=== PATIENT | male | born 1985 | race Caucasian/White ===

== ENCOUNTER 2016-06-23 14:37 | Emergency (ER) | payer OTHER ==
[2016-06-23] MEDS ORDERED: KETOROLAC 60 MG/2 ML VIAL IM STA (15:06)
--- NOTE | 2016-06-23 15:08 | ED ---
Back Pain HPI - General Chief Complaint: Back Pain/Injury Stated Complaint: Back Pain Time Seen by Provider: 06/23/16 14:45 Source: patient, RN notes reviewed - History of Present Illness Initial Comments: Patient is a 30-year-old male presents to the emergency room for evaluation of low back pain. Patient states around 10:00 this morning he was bending over to grab an object and felt a pop in his lower back. Patient states having pain ever since. Patient states pain is worse on the right side of his lower back. Patient denies pain radiating down his leg. Patient denies any numbness or tingling in his legs. Patient denies saddle anesthesia. Patient denies urinary or fecal incontinence. Patient states pain is worse when he sits down and better when he stands up straight. Patient denies any history of back problems. Patient denies taking anything for his pain. Patient denies applying any ice to the area. Patient states the pain would not subside so he thought he should be evaluated. Patient denies recent falls or direct trauma to his back. - Related Data Home Medications Medication Instructions Recorded Confirmed Dextroamphetamine/Amphetamine 20 mg PO TID 09/14/14 09/29/15 [Adderall] HYDROcodone/APAP 5-325MG [[place] 1 tab PO Q4HR PRN 09/29/15 09/29/15 5-325] Ibuprofen [Motrin] 800 mg PO Q6H PRN 09/29/15 09/29/15 Previous Rx's Medication Instructions Recorded HYDROcodone/APAP 5-325MG [[place] 1 tab PO Q6HR PRN #30 tab 09/29/15 5-325] Naproxen [Naprosyn] 500 mg PO Q12HR PRN #20 tab 06/23/16 Orphenadrine [Norflex] 100 mg PO Q12H PRN #12 tablet.er 06/23/16 Allergies Allergy/AdvReac Type Severity Reaction Status Date / Time No Known Allergies Allergy Verified 06/23/16 14:51 Review of Systems ROS Statement: Those systems with pertinent positive or pertinent negative responses have been documented in the HPI. ROS Other: All systems not noted in ROS Statement are negative. Past Medical History Past Medical History: No Reported History Additional Past Medical History / Comment(s): pneumothorax History of Any Multi-Drug Resistant Organisms: MRSA Date of last positivie culture/infection: 2014 Past Surgical History: No Surgical Hx Reported Past Psychological History: ADD/ADHD Smoking Status: Current every day smoker Past Alcohol Use History: Occasional Past Drug Use History: Marijuana General Exam - General Exam Comments Initial Comments: Sitting in exam room, no acute distress. General appearance: alert, in no apparent distress Head exam: Present: atraumatic, normocephalic, normal inspection Eye exam: Present: normal appearance ENT exam: Present: normal exam Neck exam: Present: normal inspection Respiratory exam: Absent: respiratory distress Back exam: Present: normal inspection, full ROM, paraspinal tenderness (right lumbosacral), vertebral tenderness (lumbosacral) Neurological exam: Present: alert, oriented X3, CN II-XII intact, normal gait Psychiatric exam: Present: normal affect, normal mood Skin exam: Present: warm, dry, intact, normal color. Absent: rash Course Vital Signs 06/23/16 06/23/16 14:49 16:31 Temperature 98.2 F 98.7 F Pulse Rate 97 89 Respiratory 18 16 Rate Blood Pressure 131/74 135/87 O2 Sat by Pulse 99 98 Oximetry Medical Decision Making - Medical Decision Making Patient is a 30-year-old male presents to the emergency room for evaluation of low back pain. X-ray shows no acute findings. Advised patient to follow-up with his primary care provider if symptoms are not improving. Will send patient home with anti-inflammatories. Patient states he understands everything was discussed with him. Return parameters discussed. - Radiology Data Radiology results: report reviewed, image reviewed Disposition Clinical Impression: Low back strain Disposition: HOME SELF-CARE Condition: Good Instructions: Acute Low Back Pain (ED) Additional Instructions: Take medications as needed for pain. Ice on and off for 10-15 minutes at a time for the next 24-48 hours. Please follow up with primary care provider if symptoms are not improving. If any new symptom arises or symptoms worsen, return to ER as soon as possible. Prescriptions: Naproxen [Naprosyn] 500 mg PO Q12HR PRN #20 tab PRN Reason: Pain Orphenadrine [Norflex] 100 mg PO Q12H PRN #12 tablet.er PRN Reason: Pain Referrals: None,Stated [Primary Care Provider] - 1-2 days Time of Disposition: 16:27
--- NOTE | 2016-06-23 16:23 | XR ---
EXAM TYPE: LUMBAR SPINE X RAY SERIES COMPARISON: NONE HISTORY: Back pain TECHNIQUE: 4 views are submitted. FINDINGS: Alignment is anatomic. The pedicles are intact. The transverse processes are intact. There is no s pondylolysis or spondylolisthesis. IMPRESSION: 1. No acute process. Follow-up with MRI as clinically warranted
[2016-06-23 16:32] VITALS: BP 135/87; PULSE 89; RESP 16; TEMP 98.7
== END 2016-06-23 16:36 | disposition home or self-care (01) ==
LOC: EC 14:37
DX: S39.012A Strain of muscle, fascia and tendon of lower back, initial encounter (principal); F90.9 Attention-deficit hyperactivity disorder, unspecified type; F17.200 Nicotine dependence, unspecified, uncomplicated; Z79.899 Other long term (current) drug therapy; X50.9XXA Other and unspecified overexertion or strenuous movements or postures, initial encounter; Y93.89 Activity, other specified
CPT/HCPCS: 72110; 99283; 96372; J1885

== ENCOUNTER 2023-04-04 07:47 | Inpatient (IN) | payer OTHER ==
[2023-04-04] MEDS: KETOROLAC 15 MG/ML 1 ML VIAL IVP STA (08:14)
[2023-04-04 08:48] LABS: HGB 15.6 gm/dL (13.0-17.5); MCH 31.7 pg (25.0-35.0); MCHC 35.6 g/dL (31.0-37.0); MCV 88.9 fL (80.0-100.0); Mean Platelet Volume 10.1; Platelet Count 156 k/uL (150-450); RBC 4.94 m/uL (4.30-5.90); WBC 15.4 k/uL (3.8-10.6)
[2023-04-04 08:50] LABS: African American GFR (CKD) >90 (>60 ml/min/1.73 sqM); Anion Gap 6 mmol/L; Blood Urea Nitrogen 11 mg/dL (9-20); Calcium 8.9 mg/dL (8.4-10.2); Carbon Dioxide 25 mmol/L (22-30); Chloride 100 mmol/L (98-107); Glucose 113 mg/dL (74-99); Non-African American GFR(CKD) >90 (>60 ml/min/1.73 sqM); Sodium 131 mmol/L (137-145)
--- NOTE | 2023-04-04 09:07 | US ---
EXAMINATION TYPE: US extremity nonvasc mass RT DATE OF EXAM: 04/04/2023 COMPARISON: NONE CLINICAL INDICATION: Male, 37 years old with history of lower leg mass/abscess; Lump and redness near right ankle area. TECHNIQUE: Grayscale imaging of the ankle. FINDINGS: Small complex fluid collection seen 1.2 x 0.3 x 0.3 cm. Near the right ankle in patient of lump. IMPRESSION: Small organizing fluid collection finding could represent hematoma/seroma and/or abscess in setting of infection and erythema.
--- NOTE | 2023-04-04 09:33 | US ---
EXAMINATION TYPE: US groin RT DATE OF EXAM: 04/04/2023 COMPARISON: NONE CLINICAL INDICATION: Male, 37 years old with history of pain; Pain right groin. TECHNIQUE: Imaging of the right groin FINDINGS: Prominent lymph node seen right groin 3.2 x 1.9 x 2.4 cm increased vascularity. IMPRESSION: Right groin lobulated lymph node. Finding could be reactive for the suspected infectious process near the ankle. Consider short-term follow up to ensure resolution in one to 2 months.
[2023-04-04] MEDS ORDERED: VANCOMYCIN IV PER PHARMACY 1 EACH MISC MISCELLANE PRN (09:40)
--- NOTE | 2023-04-04 09:55 | ED ---
General Adult HPI - General Chief complaint: Skin/Abscess/Foreign Body Stated complaint: Right leg swelling Time Seen by Provider: 04/04/23 07:54 Source: patient, RN notes reviewed Mode of arrival: ambulatory Limitations: no limitations - History of Present Illness Initial comments: 37-year-old male presents emergency department chief complaint of right leg infection, pain. Patient states that he had a prior infection to his leg and she states he was placed on antibiotics and cleared up while back. He states that he felt little off yesterday by woke up with red swelling on his lower leg, pain and pain to his right groin states there is a lump in his right groin. He states he feels weak, achy possible fever. - Related Data Home Medications Medication Instructions Recorded Confirmed Dextroamphetamine/Amphetamine 20 mg PO BID 09/14/14 04/04/23 [Adderall] Allergies Allergy/AdvReac Type Severity Reaction Status Date / Time No Known Allergies Allergy Verified 04/04/23 11:02 Review of Systems ROS Statement: Those systems with pertinent positive or pertinent negative responses have been documented in the HPI. ROS Other: All systems not noted in ROS Statement are negative. Past Medical History Past Medical History: No Reported History Additional Past Medical History / Comment(s): pneumothorax History of Any Multi-Drug Resistant Organisms: MRSA Date of last positivie culture/infection: 2014 Past Surgical History: No Surgical Hx Reported Past Psychological History: ADD/ADHD Smoking Status: Current every day smoker Past Alcohol Use History: Occasional Past Drug Use History: Marijuana General Exam Limitations: no limitations General appearance: alert, in no apparent distress Head exam: Present: atraumatic, normocephalic, normal inspection Neck exam: Present: normal inspection. Absent: tenderness, meningismus, lymphadenopathy Respiratory exam: Present: normal lung sounds bilaterally. Absent: respiratory distress, wheezes, rales, rhonchi, stridor Cardiovascular Exam: Present: regular rate, normal rhythm, normal heart sounds. Absent: systolic murmur, diastolic murmur, rubs, gallop, clicks Extremities exam: Present: other (Palpable lymphadenopathy right groin, there is an irregular bordered erythematous area in the lower leg ) Course Vital Signs 04/04/23 04/04/23 04/04/23 07:50 09:34 11:28 Temperature 99.2 F 101.2 F H 98.4 F Pulse Rate 87 86 Respiratory 16 18 Rate Blood Pressure 123/71 120/69 O2 Sat by Pulse 98 98 Oximetry Medical Decision Making - Medical Decision Making Was pt. sent in by a medical professional or institution (SHIRA Cotto, PEDIATRIC PHYSICIAN ASSISTANT, urgent care, hospital, or [place] health care facility...) When possible be specific @ -[No] Did you speak to anyone other than the patient for history (EMS, parent, family, police, friend...)? What history was obtained from this source @ -[No] Did you review nursing and triage notes (agree or disagree)? Why? @ -[I reviewed and agree with nursing and triage notes] Were old charts reviewed (outside hosp., previous admission, EMS record, old EKG, old radiological studies, urgent care reports/EKG's, [place] health care facility records)? Report findings @ -[No old charts were reviewed] Differential Diagnosis (chest pain, altered mental status, abdominal pain women, abdominal pain men, vaginal bleeding, weakness, fever, dyspnea, syncope, headache, dizziness, GI bleed, back pain, seizure, CVA, palpatations, mental health, musculoskeletal)? @ -[Cellulitis, abscess lymphadenopathy, sepsis EKG interpreted by me (3pts min.). @ -[None X-rays interpreted by me (1pt min.). @ -[None done] CT interpreted by me (1pt min.). @ -[None done] U/S interpreted by me (1pt. min.). @ -[Ultrasound mass right lower leg shows possible early abscess 1 x 0.3 x 0.3 cm Right groin ultrasound showing inguinal lymph nodes What testing was considered but not performed or refused? (CT, X-rays, U/S, labs)? Why? @ -[None] What meds were considered but not given or refused? Why? @ -[None] Did you discuss the management of the patient with other professionals (professionals i.e. SHIRA Cotto, PEDIATRIC PHYSICIAN ASSISTANT, lab, RT, psych nurse, health care social worker, project consultant, teacher, staff mine warfare officer, case worker)? Give summary @ -Dr. Arellano Was smoking cessation discussed for >3mins.? @ -[No] Was critical care preformed (if so, how long)? @ -[No] Were there social determinants of health that impacted care today? How? (Homelessness, low income, unemployed, alcoholism, drug addiction, transportation, low edu. Level, literacy, decrease access to med. care, shelter, rehab)? @ -[No] Was there de-escalation of care discussed even if they declined (Discuss DNR or withdrawal of care, Hospice)? DNR status @ -[No] What co-morbidities impacted this encounter? (DM, HTN, Smoking, COPD, CAD, Cancer, CVA, ARF, Chemo, Hep., AIDS, mental health diagnosis, sleep apnea, morbid obesity)? @ -[None] Was patient admitted / discharged? Hospital course, mention meds given and route, prescriptions, significant lab abnormalities, going to OR and other pertinent info. @ -[Admitted patient had sudden onset infection right lower leg with 6 inguinal lymphadenopathy, fever leukocytosis. Patient be admitted for IV antibiotics pending blood cultures lactic was negative. Patient does have consult to infectious disease Undiagnosed new problem with uncertain prognosis? @ -[No] Drug Therapy requiring intensive monitoring for toxicity (Heparin, Nitro, Insulin, Cardizem)? @ -[No] Were any procedures done? @ -[No] Diagnosis/symptom? @ -[cellulitis, abscess, inguinal lymphadenopathy] Acute, or Chronic, or Acute on Chronic? @ -[Acute Uncomplicated (without systemic symptoms) or Complicated (systemic symptoms)? @ -[Complicated Side effects of treatment? @ -[No] Exacerbation, Progression, or Severe Exacerbation? @ -[No] Poses a threat to life or bodily function? How? (Chest pain, [place], [place], pneumonia, PE, COPD, DKA, ARF, appy, cholecystitis, CVA, Diverticulitis, Homicidal, Suicidal, threat to staff... and all critical care pts) @ -[Yes possible sepsis] - Lab Data Result diagrams: 04/04/23 08:11 04/04/23 08:11 Lab Results 04/04/23 04/04/23 04/04/23 Range/Units 08:11 08:11 08:11 WBC 15.4 H (3.8-10.6) k/uL RBC 4.94 (4.30-5.90) m/uL Hgb 15.6 (13.0-17.5) gm/dL Hct 44.0 (39.0-53.0) % MCV 88.9 (80.0-100.0) fL MCH 31.7 (25.0-35.0) pg MCHC 35.6 (31.0-37.0) g/dL RDW 12.0 (11.5-15.5) % Plt Count 156 (150-450) k/uL MPV 10.1 Neutrophils % (Manual) 84 % Band Neuts % (Manual) 3 % Lymphocytes % (Manual) 7 % Monocytes % (Manual) 6 % Neutrophils # (Manual) 13.30 H (1.3-7.7) k/uL Lymphocytes # (Manual) 1.08 (1.0-4.8) k/uL Monocytes # (Manual) 0.92 (0-1.0) k/uL Nucleated RBCs 0 (0-0) /100 WBC Manual Slide Review Performed RBC Morphology Normal Sodium 131 L (137-145) mmol/L Potassium 4.0 (3.5-5.1) mmol/L Chloride 100 (98-107) mmol/L Carbon Dioxide 25 (22-30) mmol/L Anion Gap 6 mmol/L BUN 11 (9-20) mg/dL Creatinine 0.73 (0.66-1.25) mg/dL Est GFR (CKD-EPI)AfAm >90 (>60 ml/min/1.73 sqM) Est GFR (CKD-EPI)NonAf >90 (>60 ml/min/1.73 sqM) Glucose 113 H (74-99) mg/dL Plasma Lactic Acid Parth 1.0 (0.7-2.0) mmol/L Calcium 8.9 (8.4-10.2) mg/dL Disposition Clinical Impression: Cellulitis of right leg, Fever, Inguinal lymphadenopathy Disposition: ADMITTED IP TO THIS HOSP Condition: Fair Time of Disposition: 09:55
[2023-04-04] MEDS ORDERED: NALOXONE 0.4 MG/ML 1 ML VIAL IV PRN (09:56)
[2023-04-04] MEDS ORDERED: ONDANSETRON 4 MG/2 ML VIAL IVP PRN (09:56)
[2023-04-04 09:58] LABS: Band Neutrophils % 3 %; Lymphocytes # (M) 1.08 k/uL (1.0-4.8); Monocytes # (M) 0.92 k/uL (0-1.0); Neutrophils % (M) 84 %; Nucleated Red Blood Cells 0 /100 WBC (0-0); Total Cells Counted 100
[2023-04-04 09:59] LABS: RBC Morphology Normal
[2023-04-04] MEDS: ACETAMINOPHEN TAB 500 MG TAB PO STA (10:23)
[2023-04-04] MEDS: SODIUM CHLORIDE 0.9% 1,000 ML IV ONE (10:35)
[2023-04-04] MEDS: VANCOMYCIN 2,000 MG in SODIUM CHLORIDE 0.9% 500 ML 500 ML IVPB ONE (10:35)
[2023-04-04] MEDS: SODIUM CHLORIDE 0.9% 1,000 ML IV SCH (11:20)
[2023-04-04] MEDS: SODIUM CHLORIDE 0.9% 500 ML 500 ML IV ONE (11:25)
[2023-04-04] MEDS: ACETAMINOPHEN TAB 325 MG TAB PO PRN (18:57)
[2023-04-04] MEDS: VANCOMYCIN 1,750 MG in SODIUM CHLORIDE 0.9% 500 ML 500 ML IVPB SCH (20:34)
--- NOTE | 2023-04-04 20:40 | P.CONS ---
History of Present Illness - Reason for Consult Consult date: 04/04/23 Cellulitis Requesting physician: Mike Jack - Chief Complaint Increasing pain swelling redness to the right leg x few days - History of Present Illness Patient is a 37-year-old male with a past medical history significant for ADHD current everyday smoker previous history of right lower extremity cellulitis presenting to the hospital for evaluation of increasing pain swelling redness to the right lower extremity patient symptoms started the day before presentation the hospital has been consulted almost to the right middle leg patient denies any history of any trauma did have a area of induration swelling and redness which is painful to touch describing the pain to be sharp moderate to severe intensity without radiation and also having some pain and numbness to the right groin area patient currently not having open wound or any drainage patient on presentation to the hospital did have a fever of 101.2 degrees Fahrenheit patient was not tachycardic hypotensive or hypoxic did have a white count of 15.4 with a left shift creatinine was 0.73 extremity ultrasound small organizing fluid collection could be present hematoma seroma or an abscess patie nt was started on vancomycin infectious disease was consulted for further management of antibiotic therapy Review of Systems Positive point and negatives has been mentioned in the HPI, complete review of systems was performed and all other systems are negative Past Medical History Past Medical History: No Reported History Additional Past Medical History / Comment(s): pneumothorax History of Any Multi-Drug Resistant Organisms: MRSA Year Discovered:: 2014 Past Surgical History: No Surgical Hx Reported Past Psychological History: ADD/ADHD Smoking Status: Current every day smoker Past Alcohol Use History: Occasional Past Drug Use History: Marijuana - Past Family History Father Family Medical History: Hyperlipidemia, Hypertension, Thyroid Disorder Mother Family Medical History: No Reported History Medications and Allergies Home Medications Medication Instructions Recorded Confirmed Type Dextroamphetamine/Amphetamine 20 mg PO BID 09/14/14 04/04/23 History [Adderall] Cephalexin [Keflex] 500 mg PO Q6HR 10 Days #40 cap 04/08/23 Rx Allergies Allergy/AdvReac Type Severity Reaction Status Date / Time No Known Allergies Allergy Verified 04/04/23 11:02 Physical Exam Vitals: Vital Signs Temp Pulse Resp BP Pulse Ox 04/04/23 09:34 101.2 F H 86 18 120/69 98 04/04/23 07:50 99.2 F 87 16 123/71 98 Intake and Output 04/03/23 04/04/23 04/04/23 22:59 06:59 14:59 Other: Weight 104.326 kg GENERAL DESCRIPTION: Middle-aged male lying in bed, no distress. No tachypnea or accessory muscle of respiration use. HEENT: Shows Pallor , no scleral icterus. Oral mucous membrane is dry. No pharyngeal erythema or thrush NECK: Trachea central, no thyromegaly. LUNGS: Unlabored breathing. Clear to auscultation anteriorly. No wheeze or crackle. HEART: S1, S2, regular rate and rhythm. No loud murmur ABDOMEN: Soft, no tenderness , guarding or rigidity, no organomegaly EXTREMITIES: Right lower extremity area of swelling redness induration which is fluctuant and tender SKIN: No rash, no masses palpable. NEUROLOGICAL: The patient is awake, alert, oriented x3, mood and affect normal. Results CBC & Chem 7: 04/06/23 05:48 04/07/23 11:27 Labs: Abnormal Lab Results - Last 24 Hours (Table) 04/04/23 04/04/23 Range/Units 08:11 08:11 WBC 15.4 H (3.8-10.6) k/uL Neutrophils # (Manual) 13.30 H (1.3-7.7) k/uL Sodium 131 L (137-145) mmol/L Glucose 113 H (74-99) mg/dL Assessment and Plan (1) Abscess of right leg Status: Acute Code(s): L02.415 - CUTANEOUS ABSCESS OF RIGHT LOWER LIMB SNOMED Code(s): 907560971 (2) Cellulitis of right leg Status: Acute Code(s): L03.115 - CELLULITIS OF RIGHT LOWER LIMB SNOMED Code(s): 96239620440668638 (3) Sepsis Status: Acute Code(s): A41.9 - SEPSIS, UNSPECIFIED ORGANISM SNOMED Code(s): 54033678 Plan: 1patient presented to hospital with sepsis in this patient noted a fever e levated white count source right lower extremity likely abscess and cellulitis likely from gram-positive skin miguel underlying chronic infection less likely but not excluded 2-patient benefit from surgical drainage of the abscess and deep culture 3-he will continue the vancomycin will watch his kidney function closely add cefepime for gram-negative coverage while awaiting further workup to be comp leted 4marked area of redness We will follow on clinical condition and cultures to further adjust medication if needed Thank you for this consultation we will follow the patient along with you Dictation was produced using [employer] dictation software. please excuse any grammatical, word or spelling errors. Time with Patient: Greater than 30
[2023-04-04] MEDS: CEFEPIME 2 GM in SODIUM CHLORIDE 0.9% 100 ML IVPB SCH (21:10)
[2023-04-05 05:55] LABS: African American GFR (CKD) >90 (>60 ml/min/1.73 sqM); Anion Gap 5 mmol/L; Blood Urea Nitrogen 13 mg/dL (9-20); Calcium 8.1 mg/dL (8.4-10.2); Carbon Dioxide 22 mmol/L (22-30); Chloride 106 mmol/L (98-107); Glucose 84 mg/dL (74-99); Non-African American GFR(CKD) >90 (>60 ml/min/1.73 sqM); Sodium 133 mmol/L (137-145)
[2023-04-05] MEDS: KETOROLAC 15 MG/ML 1 ML VIAL IVP PRN (08:26)
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
[2023-04-05] MEDS: LIDOCAINE 4% CREAM 5 GM TUBE TOPICAL ONE (11:19)
--- NOTE | 2023-04-05 11:39 | P.PN ---
Subjective Progress Note Date: 04/05/23 Principal diagnosis: Reason for follow-up is right lower extremity abscess and cellulitis Patient is a 37-year-old male with a past medical history significant for ADHD current everyday smoker previous history of right lower extremity cellulitis presenting to the hospital for evaluation of increasing pain swelling redness to the right lower extremity, patient be diagnosed with sepsis and right lower extremity abscess and cellulitis. On today's evaluation that is 04/05/2023,the patient did have resolution of his fever this morning and is afebrile today, patient is breathing comfortably on room air, the patient denies chest pain shortness of breath and no significant cough, patient denies abdominal pain, no nausea vomiting or diarrhea. Patient has been complaining of pain to the right lower extremity which seem to be ready to pop but patient. Patient did have a creatinine 0.68 CBC is pending blood cultures are pending Objective - Vital Signs Vital signs: Vital Signs Temp 97.5 F L 04/05/23 07:44 Pulse 79 04/05/23 07:44 Resp 18 04/05/23 07:44 BP 111/65 04/05/23 07:44 Pulse Ox 98 04/05/23 07:44 FiO2 Intake & Output 04/04/23 04/05/23 04/05/23 18:59 06:59 18:59 Weight 104.326 kg Other: Voiding Method Toilet # Voids 2 3 - Exam GENERAL DESCRIPTION: Middle-age male lying in bed in no distress RESPIRATORY SYSTEM: Unlabored breathing , decreased breath sounds at bases HEART: S1 S2 regular rate and rhythm , ABDOMEN: Soft , no tenderness EXTREMITIES: Right anterior leg did have an area of swelling induration and tenderness which is fluctuant - Labs CBC & Chem 7: 04/04/23 08:11 04/05/23 05:16 Labs: Abnormal Lab Results - Last 24 Hours (Table) 04/04/23 04/05/23 Range/Units 08:11 05:16 Neutrophils # (Manual) 13.30 H (1.3-7.7) k/uL Sodium 133 L (137-145) mmol/L Calcium 8.1 L (8.4-10.2) mg/dL Assessment and Plan (1) Abscess of right leg Current Visit: Yes Status: Acute Code(s): L02.415 - CUTANEOUS ABSCESS OF RIGHT LOWER LIMB SNOMED Code(s): 919150421 (2) Leukocytosis Current Visit: Yes Status: Acute Code(s): D72.829 - ELEVATED WHITE BLOOD CELL COUNT, UNSPECIFIED SNOMED Code(s): 098856591 (3) Cellulitis of right leg Current Visit: Yes Status: Acute Code(s): L03.115 - CELLULITIS OF RIGHT LOWER LIMB SNOMED Code(s): 95562486758541145 Plan: 1patient presented to hospital with sepsis in this patient noted a fever elevated white count source right lower extremity likely abscess and cellulitis likely from gram-positive skin miguel underlying chronic infection less likely but not excluded 2-patient has been eval by vascular surgery planning for I&D and culture this afternoon 3-patient is currently covered with vancomycin and cefepime to continue will watch his kidney function and culture closely and adjust antibiotic further if needed Dictation was produced using [employer] dictation software. please excuse any grammatical, word or spelling errors. Time with Patient: Less than 30
[2023-04-05] MEDS: MORPHINE SULFATE 4 MG/ML SYRINGE IVP STA (12:41)
[2023-04-05] MEDS: LIDOCAINE 1% INJ 10MG/ML (20 ML MDV) SQ ONE (12:44)
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
[2023-04-05] MEDS: HYDROcodone/APAP 5-325MG 1 EACH TAB PO PRN (15:16)
[2023-04-06 08:24] LABS: Basophils # (A) 0.09 X 10*3/uL (0.00-0.10); Basophils % (A) 1.4 %; Eosinophils # (A) 0.29 X 10*3/uL (0.04-0.35); Eosinophils % (A) 4.5 %; HCT 37.1 % (39.6-50.0); HGB 12.9 g/dL (13.0-17.0); Lymphocytes # (A) 0.79 X 10*3/uL (0.90-5.00); Lymphocytes % (A) 12.2 %; MCH 30.4 pg (27.0-32.0); MCHC 34.8 g/dL (32.0-37.0); MCV 87.5 FL (80.0-97.0); Mean Platelet Volume 12.3 FL (9.5-12.2); Monocytes # (A) 0.74 X 10*3/uL (0.20-1.00); Monocytes % (A) 11.4 %; NRBC Per 100 WBC 0 X 10*3/uL (0.00-0.01); Neutrophils # (A) 4.54 X 10*3/uL (1.80-7.70); Neutrophils % (A) 70.2 %; Platelet Count 126 X 10*3/uL (140-440); RBC 4.24 X 10*6/uL (4.40-5.60); RDW 12.1 % (11.5-14.5); WBC 6.47 X 10*3/uL (4.50-10.00)
[2023-04-06 08:36] LABS: BUN/Creat Ratio 14.57 Ratio (12.00-20.00); Blood Urea Nitrogen 10.2 mg/dL (9.0-27.0); Calcium 7.9 mg/dL (8.7-10.3); Carbon Dioxide 22.3 mmol/L (21.6-31.8); Chloride 107 mmol/L (96-109); Glucose 98 mg/dL (70-110); Potassium 3.9 mmol/L (3.5-5.5); Sodium 138 mmol/L (135-145)
[2023-04-06] MEDS: VANCOMYCIN TROUGH DUE 1 EACH MISC MISCELLANE ONE (11:15)
--- NOTE | 2023-04-06 11:50 | P.PN ---
Subjective Progress Note Date: 04/06/23 Principal diagnosis: Reason for follow-up is right lower extremity abscess and cellulitis Patient is a 37-year-old male with a past medical history significant for ADHD current everyday smoker previous history of right lower extremity cellulitis presenting to the hospital for evaluation of increasing pain swelling redness to the right lower extremity, patient be diagnosed with sepsis and right lower extremity abscess and cellulitis.patient is status post incision and drainage of right lower extremity fluid collection completed on 04/05/2023 cultures are obtained. On today's evaluation that is 04/06/2023,the patient remains to be afebrile, patient is on room air not requiring supplemental oxygen and denies any shortness of breath no chest pain or cough.Patient denies having any nausea or vomiting, no abdominal pain and no diarrhea has been reported complaining of pain to the right lower extremity especially with the dressing changes. Patient white count is 6.47, creatinine is 0.7 Vanco trough is 18.5 cultures currently pending Objective - Vital Signs Vital signs: Vital Signs Temp 97.5 F L 04/06/23 07:16 Pulse 47 L 04/06/23 07:16 Resp 16 04/06/23 07:16 BP 120/68 04/06/23 07:16 Pulse Ox 99 04/06/23 07:16 FiO2 Intake & Output 04/05/23 04/06/23 04/06/23 18:59 06:59 18:59 Intake Total 1600 Balance 1600 Intake: Intake, IV Titration 1600 Amount Cefepime 2 gm In Sodium 200 Chloride 0.9% 100 ml @ 25 mls/hr IVPB Q8H [facility] Rx#: [id number] Sodium Chloride 0.9% 1, 900 000 ml @ 75 mls/hr IV . [id number] [facility] Rx#:[id number] Vancomycin 1,750 mg In 500 Sodium Chloride 0.9% 500 ml 500 ml @ 167 mls/hr IVPB Q8H [facility] Rx#: [id number] Other: Voiding Method Toilet # Voids 3 - Exam GENERAL DESCRIPTION: Middle-age male lying in bed in no distress RESPIRATORY SYSTEM: Unlabored breathing , decreased breath sounds at bases HEART: S1 S2 regular rate and rhythm , ABDOMEN: Soft , no tenderness EXTREMITIES: Right anterior leg currently dressed no drainage on the dressing - Labs CBC & Chem 7: 04/06/23 05:48 04/06/23 05:48 Labs: Abnormal Lab Results - Last 24 Hours (Table) 04/06/23 04/06/23 Range/Units 05:48 05:48 RBC 4.24 L (4.40-5.60) X 10*6/uL Hgb 12.9 L (13.0-17.0) g/dL Hct 37.1 L (39.6-50.0) % Plt Count 126 L (140-440) X 10*3/uL MPV 12.3 H (9.5-12.2) FL Lymphocytes # 0.79 L (0.90-5.00) X 10*3/uL Calcium 7.9 L (8.7-10.3) mg/dL Microbiology - Last 24 Hours (Table) 04/04/23 10:15 Blood Culture - Preliminary Blood 04/04/23 10:00 Blood Culture - Preliminary Blood Assessment and Plan (1) Abscess of right leg Current Visit: Yes Status: Acute Code(s): L02.415 - CUTANEOUS ABSCESS OF RIGHT LOWER LIMB SNOMED Code(s): 974872763 (2) Leukocytosis Current Visit: Yes Status: Acute Code(s): D72.829 - ELEVATED WHITE BLOOD CELL COUNT, UNSPECIFIED SNOMED Code(s): 269080241 (3) Cellulitis of right leg Current Visit: Yes Status: Acute Code(s): L03.115 - CELLULITIS OF RIGHT LOW ER LIMB SNOMED Code(s): 70112903835718423 Plan: 1patient presented to hospital with sepsis in this patient noted a fever elevated white count source right lower extremity likely abscess and cellulitis likely from gram-positive skin miguel underlying chronic infection less likely but not excluded 2-patient has status post surgical drainage and cultures are currently pending 3-patient to continue with vancomycin and cefepime, Vanco trough is therapeutic creatinine is normal adjust antibiotic further on the basis of culture report Multiple question concern answered Dictation was produced using [employer] dictation software. please excuse any grammatical, word or spelling errors. Time with Patient: Less than 30
--- NOTE | 2023-04-06 13:24 | P.PN ---
Subjective Progress Note Date: 04/06/23 Patient was seen and examined today as a follow-up. Yesterday he underwent bedside incision and drainage of the right lower extremity. Cultures were sent and currently pending. Blood cultures are negative to date. He has been afebrile. States pain is improved but still has discomfort. Objective - Vital Signs Vital signs: Vital Signs Temp 97.5 F L 04/06/23 07:16 Pulse 47 L 04/06/23 07:16 Resp 16 04/06/23 07:16 BP 120/68 04/06/23 07:16 Pulse Ox 99 04/06/23 07:16 FiO2 Intake & Output 04/05/23 04/06/23 04/06/23 18:59 06:59 18:59 Intake Total 1600 Balance 1600 Intake: Intake, IV Titration 1600 Amount Cefepime 2 gm In Sodium 200 Chloride 0.9% 100 ml @ 25 mls/hr IVPB Q8H [facility] Rx#: [id number] Sodium Chloride 0.9% 1, 900 000 ml @ 75 mls/hr IV . [id number] [facility] Rx#:[id number] Vancomycin 1,750 mg In 500 Sodium Chloride 0.9% 500 ml 500 ml @ 167 mls/hr IVPB Q8H [facility] Rx#: [id number] Other: Voiding Method Toilet # Voids 3 - Exam General appearance: The patient is alert, oriented, appears in no acute distress. HET: Head is normocephalic and atraumatic. Pupils are equal and reactive. Neck: Supple. Abdomen: Soft, nondistended. Extremities: Right lower extremity palpable DP pulse. Erythema improving, dressing is clean dry and intact. Dressing was changed to with a wet-to-dry dressing placed. No pus or drainage from incision. Neurological: No focal deficits. Strength and sensation are grossly intact. - Labs CBC & Chem 7: 04/06/23 05:48 04/06/23 05:48 Labs: Abnormal Lab Results - Last 24 Hours (Table) 04/06/23 04/06/23 Range/Units 05:48 05:48 RBC 4.24 L (4.40-5.60) X 10*6/uL Hgb 12.9 L (13.0-17.0) g/dL Hct 37.1 L (39.6-50.0) % Plt Count 126 L (140-440) X 10*3/uL MPV 12.3 H (9.5-12.2) FL Lymphocytes # 0.79 L (0.90-5.00) X 10*3/uL Calcium 7.9 L (8.7-10.3) mg/dL Microbiology - Last 24 Hours (Table) 04/04/23 10:15 Blood Culture - Preliminary Blood 04/04/23 10:00 Blood Culture - Preliminary Blood Assessment and Plan Assessment: 1. Right lower extremity cellulitis with area of fluid collection status post incision and drainage 2. Fever 3. Leukocytosis Plan: 1. Patient is status post I&D, cultures currently pending 2. Continue antibiotics per recommendations from infectious disease 3. Wet-to-dry dressing daily, pack with 4 x 4 Thank you for this consultation, we will continue to follow. The impression and plan of care has been dictated as directed. I performed a history and examination of this patient, discussed the same with the dictator. I agree with the dictator's note ,documented as a scribe. Any additional findings or plans will be noted.
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
[2023-04-06] MEDS: VANCOMYCIN 1,500 MG in SODIUM CHLORIDE 0.9% 500 ML 500 ML IVPB SCH (18:01)
--- NOTE | 2023-04-07 10:02 | P.PN ---
Subjective Progress Note Date: 04/07/23 Patient was seen and examined today as a follow-up. He remains afebrile. He remains on IV antibiotics. Preliminary blood cultures are negative to date at 48 hours. Wound cultures preliminary with no growth at this time. Redness and swelling improved to the right lower extremity. Objective - Vital Signs Vital signs: Vital Signs Temp 98.2 F 04/07/23 07:26 Pulse 55 L 04/07/23 07:26 Resp 16 04/07/23 07:26 BP 122/75 04/07/23 07:26 Pulse Ox 98 04/07/23 07:26 FiO2 Intake & Output 04/06/23 04/07/23 04/07/23 18:59 06:59 18:59 Intake Total 700 Balance 700 Intake: Intake, IV Titration 700 Amount Cefepime 2 gm In Sodium 200 Chloride 0.9% 100 ml @ 25 mls/hr IVPB Q8H [facility] Rx#: [id number] Vancomycin 1,500 mg In 500 Sodium Chloride 0.9% 500 ml 500 ml @ 167 mls/hr IVPB Q8H [facility] Rx#: [id number] Other: Voiding Method Toilet Toilet # Voids 3 1 - Exam General appearance: The patient is alert, oriented, appears in no acute distress. HET: Head is normocephalic and atraumatic. Pupils are equal and reactive. Neck: Supple. Abdomen: Soft, nondistended. Extremities: Right lower extremity palpable DP pulse. Erythema improving, dressing is clean dry and intact. Neurological: No focal deficits. Strength and sensation are grossly intact. - Labs CBC & Chem 7: 04/06/23 05:48 04/06/23 05:48 Labs: Abnormal Lab Results - Last 24 Hours (Table) 04/06/23 04/06/23 Range/Units 05:48 05:48 RBC 4.24 L (4.40-5.60) X 10*6/uL Hgb 12.9 L (13.0-17.0) g/dL Hct 37.1 L (39.6-50.0) % Plt Count 126 L (140-440) X 10*3/uL MPV 12.3 H (9.5-12.2) FL Lymphocytes # 0.79 L (0.90-5.00) X 10*3/uL Calcium 7.9 L (8.7-10.3) mg/dL Microbiology - Last 24 Hours (Table) 04/04/23 10:15 Blood Culture - Preliminary Blood 04/04/23 10:00 Blood Culture - Preliminary Blood 04/05/23 12:51 Gram Stain - Preliminary Leg - Right Assessment and Plan Assessment: 1. Right lower extremity cellulitis with area of fluid collection status post incision and drainage 2. Fever, improved 3. Leukocytosis, improved Plan: 1. Patient is status post I&D, cultures currently pending 2. Continue antibiotics per recommendations from infectious disease 3. Wet-to-dry dressing daily, pack with 4 x 4 gauze. Then may just apply 4 x 4 and Kerlix Thank you for this consultation. Patient is cleared from vascular surgery for discharge. Follow-up in [address] Molina. The impression and plan of care has been dictated as directed. Dr. Richards I performed a history and examination of this patient, discussed the same with the dictator. I agree with the dictator's note ,documented as a scribe. Any additional findings or plans will be noted.
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
[2023-04-07 11:59] LABS: African American GFR (CKD) >90 (>60 ml/min/1.73 sqM); Anion Gap 5 mmol/L; Blood Urea Nitrogen 10 mg/dL (9-20); Calcium 8.3 mg/dL (8.4-10.2); Carbon Dioxide 25 mmol/L (22-30); Chloride 108 mmol/L (98-107); Glucose 115 mg/dL (74-99); Non-African American GFR(CKD) >90 (>60 ml/min/1.73 sqM); Potassium 3.9 mmol/L (3.5-5.1); Sodium 138 mmol/L (137-145)
--- NOTE | 2023-04-07 13:12 | P.PN ---
Subjective Progress Note Date: 04/07/23 Principal diagnosis: Reason for follow-up is right lower extremity abscess and cellulitis Patient is a 37-year-old male with a past medical history significant for ADHD current everyday smoker previous history of right lower extremity cellulitis presenting to the hospital for evaluation of increasing pain swelling redness to the right lower extremity, patient be diagnosed with sepsis and right lower extremity abscess and cellulitis.patient is status post incision and drainage of right lower extremity fluid collection completed on 04/05/2023 cultures are obtained. On today's evaluation that is 04/07/2023, the patient continues to be afebrile, the patient is on room air and breathing comfortably, the Pt denies having any chest pain or cough, the patient denies having any abdominal pain no vomiting or any diarrhea has been reported by the nursing staff, pain to the right lower extremity has decreased in intensity Patient did have a creatinine 0.66, no CBC was done today cultures are pending Objective - Vital Signs Vital signs: Vital Signs Temp 98.2 F 04/07/23 07:26 Pulse 55 L 04/07/23 07:26 Resp 16 04/07/23 07:26 BP 122/75 04/07/23 07:26 Pulse Ox 98 04/07/23 07:26 FiO2 Intake & Output 04/06/23 04/07/23 04/07/23 18:59 06:59 18:59 Intake Total 700 Balance 700 Intake: Intake, IV Titration 700 Amount Cefepime 2 gm In Sodium 200 Chloride 0.9% 100 ml @ 25 mls/hr IVPB Q8H [facility] Rx#: [id number] Vancomycin 1,500 mg In 500 Sodium Chloride 0.9% 500 ml 500 ml @ 167 mls/hr IVPB Q8H [facility] Rx#: [id number] Other: Voiding Method Toilet Toilet # Voids 3 1 - Exam GENERAL DESCRIPTION: Middle-age male lying in bed in no distress RESPIRATORY SYSTEM: Unlabored breathing , decreased breath sounds at bases HEART: S1 S2 regular rate and rhythm , ABDOMEN: Soft , no tenderness EXTREMITIES: Right anterior leg swelling redness slightly decreased - Labs CBC & Chem 7: 04/06/23 05:48 04/07/23 11:27 Labs: Microbiology - Last 24 Hours (Table) 04/04/23 10:15 Blood Culture - Preliminary Blood 04/04/23 10:00 Blood Culture - Preliminary Blood 04/05/23 12:51 Gram Stain - Preliminary Leg - Right Assessment and Plan (1) Abscess of right leg Current Visit: Yes Status: Acute Code(s): L02.415 - CUTANEOUS ABSCESS OF RIGHT LOWER LIMB SNOMED Code(s): 194601390 (2) Leukocytosis Current Visit: Yes Status: Acute Code(s): D72.829 - ELEVATED WHITE BLOOD CELL COUNT, UNSPECIFIED SNOMED Code(s): 886580352 (3) Cellulitis of right leg Current Visit: Yes Status: Acute Code(s): L03.115 - CELLULITIS OF RIGHT LOWER LIMB SNOMED Code(s): 60445764329400783 Plan: 1patient presented to hospital with sepsis in this patient noted a fever elevated white count source right lower extremity likely abscess and cellulitis likely from gram-positive skin miguel underlying chronic infection less likely but not excluded 2-patient has status post surgical drainage and cultures are currently pending 3-patient did have resolution of his fever however cultures are currently pending, to continue with vancomycin and cefepime, to determine his discharge antibiotics Dictation was produced using [email or web address] dictation software. please excuse any gram matical, word or spelling errors. Time with Patient: Less than 30
--- NOTE | 2023-04-08 11:32 | P.PN ---
Subjective Progress Note Date: 04/08/23 Principal diagnosis: Reason for follow-up is right lower extremity abscess and cellulitis Patient is a 37-year-old male with a past medical history significant for ADHD current everyday smoker previous history of right lower extremity cellulitis presenting to the hospital for evaluation of increasing pain swelling redness to the right lower extremity, patient be diagnosed with sepsis and right lower extremity abscess and cellulitis.patient is status post incision and drainage of right lower extremity fluid collection completed on 04/05/2023 cultures are obtained. On today's evaluation that is 04/08/2023, Patient is afebrile patient is currently on room air and denies having any shortness of breath, the patient denies any chest pain or cough, the patient denies any nausea vomiting did not have any abdominal pain and no diarrhea right lower extremity pain has decreased in intensity no drainage. No new labs has been obtained culture came back negative Objective - Vital Signs Vital signs: Vital Signs Temp 98.4 F 04/08/23 07:04 Pulse 55 L 04/08/23 07:04 Resp 17 04/08/23 07:04 BP 142/90 04/08/23 07:04 Pulse Ox 99 04/08/23 07:04 FiO2 Intake & Output 04/07/23 04/08/23 04/08/23 18:59 06:59 18:59 Intake Total 2100 Balance 2100 Intake: Intake, IV Titration 2100 Amount Cefepime 2 gm In Sodium 200 Chloride 0.9% 100 ml @ 25 mls/hr IVPB Q8H [facility] Rx#: [id number] Sodium Chloride 0.9% 1, 900 000 ml @ 75 mls/hr IV . [id number] [facility] Rx#:[id number] Vancomycin 1,500 mg In 1000 Sodium Chloride 0.9% 500 ml 500 ml @ 167 mls/hr IVPB Q8H [facility] Rx#: [id number] Other: Voiding Method Toilet # Voids 2 - Exam GENERAL DESCRIPTION: Middle-age male lying in bed in no distress RESPIRATORY SYSTEM: Unlabored breathing , decreased breath sounds at bases HEART: S1 S2 regular rate and rhythm , ABDOMEN: Soft , no tenderness EXTREMITIES: Right anterior leg wound is currently dressed no drainage on the dressing - Labs CBC & Chem 7: 04/06/23 05:48 04/07/23 11:27 Labs: Abnormal Lab Results - Last 24 Hours (Table) 04/07/23 Range/Units 11:27 Chloride 108 H (98-107) mmol/L Glucose 115 H (74-99) mg/dL Calcium 8.3 L (8.4-10.2) mg/dL Microbiology - Last 24 Hours (Table) 04/05/23 12:51 Gram Stain - Final Leg - Right Wound Culture - Final 04/04/23 10:15 Blood Culture - Preliminary Blood 04/04/23 10:00 Blood Culture - Preliminary Blood Assessment and Plan (1) Abscess of right leg Current Visit: Yes Status: Acute Code(s): L02.415 - CUTANEOUS ABSCESS OF RIGHT LOWER LIMB SNOMED Code(s): 332404708 (2) Leukocytosis Current Visit: Yes Status: Acute Code(s): D72.829 - ELEVATED WHITE BLOOD CELL COUNT, UNSPECIFIED SNOMED Code(s): 145608277 (3) Cellulitis of right leg Current Visit: Yes Status: Acute Code(s): L03.115 - CELLULITIS OF RIGHT LOWER LIMB SNOMED Code(s): 25457487688685099 Plan: 1patient presented to hospital with sepsis in this patient noted a fever elevated white count source right lower extremity likely abscess and cellulitis likely from gram-positive skin miguel underlying chronic infection less likely but not excluded 2-patient has status post surgical drainage and cultures are currently pending 3-patient did have resolution of his fever however cultures are so far negative we will discontinue vancomycin and cefepime patient able to finish therapy with oral Keflex 500 mg every 6 hours for 10 days and close outpatient follow-up sarah carl did have multiple question and concern regarding his wound and recurrence, questions concerns were answered in layman terms, patient care was discussed with the medical team Dictation was produced using [employer] dictation software. please excuse any grammatical, word or spelling errors. Time with Patient: Less than 30
[2023-04-08 12:26] VITALS: BP 160/66; PULSE 57; RESP 18; TEMP 98
[2023-04-09] MEDS ORDERED: VANCOMYCIN TROUGH DUE 1 EACH MISC MISCELLANE ONE (10:00)
== END 2023-04-08 13:16 | disposition home or self-care (01) | DRG 872 ==
LOC: EC 07:47 → 5NMEDONC 09:59
PROVIDERS: ADMIT Family Medicine; ATTEND Family Medicine
PROC: 0H9KXZX Drainage of Right Lower Leg Skin, External Approach, Diagnostic (ICD-10-PCS; principal; 2023-04-05)
DX: A41.9 Sepsis, unspecified organism (principal); L02.415 Cutaneous abscess of right lower limb; L03.115 Cellulitis of right lower limb; F90.9 Attention-deficit hyperactivity disorder, unspecified type; I25.10 Atherosclerotic heart disease of native coronary artery without angina pectoris; V29.99XS Rider (driver) (passenger) of other motorcycle injured in unspecified traffic accident, sequela; Z86.14 Personal history of Methicillin resistant Staphylococcus aureus infection; R59.0 Localized enlarged lymph nodes; Z28.310 Unvaccinated for COVID-19; Z28.21 Immunization not carried out because of patient refusal; Z79.52 Long term (current) use of systemic steroids
CPT/HCPCS: 36415; 80048; 80202; 83605; 85025; 87040; 87070; 87075; 87205; 96361; 96365; 96366; 96375; 99284